=== PATIENT | male | born 1990 | race Caucasian/White ===

== ENCOUNTER 2017-04-28 18:39 | Emergency (ER) | payer OTHER ==
[2017-04-28] MEDS ORDERED: NS 1,000 ML IV ONE (19:16)
[2017-04-28] MEDS ORDERED: KETOROLAC 15 MG/1 ML SDV IVP ONE (19:17)
[2017-04-28 19:27] LABS: PLATELET COUNT 250 10^3/uL (150-400)
--- NOTE | 2017-04-28 20:02 | EDPHY ---
H & P Stated Complaint: generalized abdominal pain for 5 days Time Seen by Provider: 04/28/17 18:57 HPI/ROS: This patient complains of crampy lower abdominal pain of 5 days duration. He reports that about 20 min after eating a chicken burrito bowl at the police he developed a feeling of slight abdominal distention and cramping discomfort. The symptoms have persisted over the past 5 days associated with increased flatus compared to baseline. Since 2:00 p.m. today he had gradual increase in severity of the symptoms from what had been moderate cramping to 7 or 8/10 sharp for cramping with intermittent sharp pains. He states that this is diffuse throughout his lower belly not really worse on the right or left side. The same period of time he had decreased caliber of stools compared to usual and had to strain a bit to have bowel movements but has maintained daily bowel movements. He reported very slight testicular pain bilaterally today in addition and notes no other associated symptoms. States the peak testicular discomfort is 3/10 symmetric bilaterally with no exacerbating or alleviating factors. ROS: No fevers or chills. He does have mild fatigue. No other constitutional symptoms HEENT: No recent URI symptoms or other complaints Pulmonary: No cough shortness of breath Cardiovascular: No chest pain. Does have mild lightheadedness intermittently. GI: No dark tarry stools or bloody stools. No nausea or vomiting. Last meal was at lunch time today : No dysuria frequency urgency. No hematuria. No testicular swelling. Endocrine: No complaints neuro: No complaints integumentary: No rash Complete review of symptoms otherwise negative. Source: Patient Exam Limitations: No limitations - Personal History Current Tetanus Diphtheria and Acellular Pertussis (TDAP): Unsure - Medical/Surgical History Hx Asthma: Yes Hx Chronic Respiratory Disease: No Hx Diabetes: No Hx Cardiac Disease: No Hx Renal Disease: No Hx Cirrhosis: No Hx Alcoholism: No Hx HIV/AIDS: No Hx Splenectomy or Spleen Trauma: No Other PMH: denies - Family History Significant Family History: No pertinent family hx - Social History Smoking Status: Former smoker Alcohol Use: Sober (No alcohol in 2 years) Drug Use: None - Physical Exam Exam: General Appearance: Alert, no distress. Eyes: Pupils equal and round no pallor or injection. ENT, Mouth: Mucous membranes moist. Respiratory: There are no retractions, lungs are clear to auscultation. Cardiovascular: Regular rate and rhythm. Gastrointestinal: Normoactive bowel sounds. Soft. Very minimal lower belly tenderness throughout with no guarding or rebound. No organomegaly. Back: No CVA tenderness : Circumcised penis with no urethral discharge or skin lesions. No epididymal or testicular tenderness. No testicular swelling. No evidence of inguinal hernia Neurological: GCS 15 with no focal deficits. Skin: Warm and dry, no rashes. Extremities are symmetrical, full range of motion. Psychiatric: Mood and affect are normal DIFFERENTIAL DIAGNOSIS: After history and physical exam differential diagnosis was considered for food intolerance, viral illness, appendicitis, constipation, ureteral stone, diverticulitis, UTI Constitutional: Initial Vital Signs Temperature (C) 37 C 04/28/17 18:54 Heart Rate 66 04/28/17 18:54 Respiratory Rate 16 04/28/17 18:54 Blood Pressure 134/91 H 04/28/17 18:54 O2 Sat (%) 95 04/28/17 18:54 O2 Delivery Mode Room Air Allergies/Adverse Reactions: No Known Allergies Allergy (Unverified 04/28/17 18:54) Home Medications: Medication Instructions Recorded Docusate Sodium [Colace 100 MG (*)] 100 mg PO BID #20 cap 04/28/17 Medical Decision Making ED Course/Re-evaluation: IV normal saline bolus Toradol 15 mg IV with improvement in symptoms Review of his labs: Normal CBC, normal basic metabolic panel, normal urinalysis Discussion: Patient with generalized lower belly cramping for 5 days duration with firm stools smaller caliber unusual. Differential diagnosis for this patient after workup includes potential mild viral illness causing change in bowel motility versus constipation. Doubt food intolerance given lack of diarrhea. I do not think he has appendicitis given benign exam and no leukocytosis after 5 days. Also no nausea or vomiting. Although he had mild bilateral testicle pain I think this is referred from the abdomen is he had a completely benign exam and clean urinalysis. Counseled patient regarding his lab results, diagnosis with plan to take Colace stool softener, drink plenty fluids, ibuprofen for discomfort if needed and follow up with primary care physician for any ongoing symptoms. He will return emergency department if he has any significant worsening of symptoms. I answered all the patient's questions prior to discharge home. - Data Points Laboratory Results: Laboratory Results 04/28/17 19:20 04/28/17 19:20 04/28/17 04/28/17 04/28/17 20:10 19:20 19:20 WBC 7.51 10^3/uL 10^3/uL (3.80-9.50) RBC 4.74 10^6/uL 10^6/uL (4.40-6.38) Hgb 15.0 g/dL g/dL (13.7-17.5) Hct 42.7 % % (40.0-51.0) MCV 90.1 fL fL (81.5-99.8) MCH 31.6 pg pg (27.9-34.1) MCHC 35.1 g/dL g/dL (32.4-36.7) RDW 12.2 % % (11.5-15.2) Plt Count 250 10^3/uL 10^3/uL (150-400) MPV 10.2 fL fL (8.7-11.7) Neut % (Auto) 63.4 % % (39.3-74.2) Lymph % (Auto) 25.4 % % (15.0-45.0) [place] % (Auto) 8.3 % % (4.5-13.0) Eos % (Auto) 2.3 % % (0.6-7.6) Baso % (Auto) 0.5 % % (0.3-1.7) Nucleat RBC Rel Count 0.0 % % (0.0-0.2) Absolute Neuts (auto) 4.76 10^3/uL 10^3/uL (1.70-6.50) Absolute Lymphs (auto) 1.91 10^3/uL 10^3/uL (1.00-3.00) Absolute Monos (auto) 0.62 10^3/uL 10^3/uL (0.30-0.80) Absolute Eos (auto) 0.17 10^3/uL 10^3/uL (0.03-0.40) Absolute Basos (auto) 0.04 10^3/uL 10^3/uL (0.02-0.10) Absolute Nucleated RBC 0.00 10^3/uL 10^3/uL (0-0.01) Immature Gran % 0.1 % % (0.0-1.1) Immature Gran # 0.01 10^3/uL 10^3/uL (0.00-0.10) Sodium 141 mEq/L mEq/L (135-145) Potassium 4.3 mEq/L mEq/L (3.5-5.2) Chloride 98 mEq/L mEq/L (97-110) Carbon Dioxide 28 mEq/l mEq/l (22-31) Anion Gap 15 mEq/L mEq/L (8-16) BUN 22 mg/dL mg/dL (7-23) Creatinine 1.0 mg/dL mg/dL (0.7-1.3) Estimated GFR > 60 Glucose 107 mg/dL H mg/dL (70-100) Calcium 9.2 mg/dL mg/dL (8.5-10.4) Urine Color YELLOW Urine Appearance CLEAR Urine pH 6.0 (5.0-7.5) Ur Specific [place] 1.025 (1.002-1.030) Urine Protein NEGATIVE (NEGATIVE) Urine Ketones NEGATIVE (NEGATIVE) Urine Blood NEGATIVE (NEGATIVE) Urine Nitrate NEGATIVE (NEGATIVE) Urine Bilirubin NEGATIVE (NEGATIVE) Urine Urobilinogen 0.2 EU EU (0.2-1.0) Ur Leukocyte Esterase NEGATIVE (NEGATIVE) Urine Glucose NEGATIVE (NEGATIVE) Medications Given: Discontinued Medications Sodium Chloride (Ns) 1,000 mls @ 0 mls/hr IV EDNOW ONE; Wide Open PRN Reason: Protocol Stop: 04/28/17 19:17 Last Admin: 04/28/17 19:22 Dose: 1,000 mls Ketorolac Tromethamine (Toradol) 15 mg IVP EDNOW ONE Stop: 04/28/17 19:18 Last Admin: 04/28/17 19:28 Dose: 15 mg Departure - Departure Disposition: Home, Routine, Self-Care Clinical Impression: Lower abdominal pain Condition: Good Instructions: Constipation (ED), Acute Abdominal Pain (ED) Additional Instructions: Diagnosis: Lower abdominal pain 2. Possible constipation Plan: Drink plenty fluids Increase fiber intake-fruit and veggies. Colace stool softener as prescribed Ibuprofen if needed for any lingering discomfort. Follow up with Dr. Turner-primary care physician for any ongoing symptoms despite treatment plan Return emergency department for any significant worsening despite the treatment plan. Referrals: NONE *PRIMARY CARE P,. [Primary Care Provider] - As per Instructions Zeenat Sparks MD [Medical Doctor] - As per Instructions Prescriptions: Docusate Sodium [Colace 100 MG (*)] 100 mg PO BID #20 cap
[2017-04-28 20:36] VITALS: BP 133/84; PULSE 57; RESP 14; TEMP 97.5; O2SAT 94
== END 2017-04-28 20:50 | disposition home or self-care (01) ==
LOC: CED 18:39
DX: R10.30 Lower abdominal pain, unspecified (principal); E86.9 Volume depletion, unspecified; J45.909 Unspecified asthma, uncomplicated; Z87.891 Personal history of nicotine dependence
CPT/HCPCS: 80048-PO; 81003-PO; 85025-PO; 96374; J1885